=== PATIENT | female | born 1970 ===

== ENCOUNTER → 2017-09-01 | Emergency (ER) | payer OTHER ==
[~2017-09-01] VITALS: Ht 162.6 cm; Wt 77.1 kg
[~2017-09-01] MED LIST: ASA81 MG PO; BENADRYL25 MG PO; ISOSORBIDE DINI20 MG PO; JANUMET XR 1001 EACH; MEDROL4 MG PO; METHIMAZOLE5 GM; METROPOLOL 50 MG; NORVASC2.5 MG; PEPCID40 MG PO; PLAVIX75 MG; SINVASTATIN 20MG; [UNRECOGNIZED DRUG - OTHER]
== END | disposition designated cancer center or children's hospital (05) ==
LOC: ER 23:24 → CPU-OBS 23:31 → ER 23:31
DX: R00.0 Tachycardia, unspecified (principal); E03.8 Other specified hypothyroidism
CPT/HCPCS: G0378; G0379; 93005

== ENCOUNTER → 2020-09-20 | Emergency (ER) | payer OTHER ==
[~2020-09-20] VITALS: Ht 162.6 cm; Wt 72.1 kg
[~2020-09-20] MED LIST changes: +AMLODIPINE BESY10 MG; +ATORVASTATIN CA10 MG; +FLOVENT DISKU100 MCG; +GLIMEPIRIDE1 M1; +INDERAL XL80 MG; +ISOSORBIDE DINI30 MG; +PROPYLTHIOURACI50 MG
== END | disposition home or self-care (01) ==
LOC: ER 05:11
DX: R07.9 Chest pain, unspecified (principal)

== ENCOUNTER → 2023-10-29 | Emergency (ER) | payer OTHER ==
[~2023-10-29] VITALS: Ht 162.6 cm; Wt 63.5 kg
[~2023-10-29] MED LIST changes: +INSULIN REGULAR, HUMAN 1,000 UNIT/10 ML UNITS SUBCUTANEO NR
== END | disposition left against medical advice (07) ==
LOC: ER 20:04
DX: E11.65 Type 2 diabetes mellitus with hyperglycemia (principal); Z79.84 Long term (current) use of oral hypoglycemic drugs; J45.909 Unspecified asthma, uncomplicated; I11.9 Hypertensive heart disease without heart failure; Z88.6 Allergy status to analgesic agent